=== PATIENT | male | born 1965 | race American Indian/Alaskan Native ===

== ENCOUNTER 2018-07-04 18:18 | Emergency (ER) | payer OTHER ==
--- NOTE | 2018-07-04 18:39 | Emergency Department Report ---
Chief Complaint: Chest Pain Stated Complaint: CHEST PAIN Time Seen by Provider: 07/04/18 18:32 - HPI History of Present Illness: pt c/o chest tightness that began 2-3 days he has SOB, nausea, palpitations denies pleuritic CP, no emesis non smoker pt states he had dental work done early in the week pt states he has had increased stress lately no cardiac hx VSS MSE complete MSE screening note: Focused history and physical exam performed. Due to findings the following was ordered: CP protocol ED Disposition for MSE Condition: Stable
[2018-07-04 19:09] LABS: Hematocrit 44.3 % (35.5-45.6); Hemoglobin 14.8 gm/dl (11.8-15.2); Mean Corpuscular HGB Conc 34 % (32-34); Mean Corpuscular Volume 87 fl (84-94); Platelet Count 162 K/mm3 (140-440); Red Blood Count 5.08 M/mm3 (3.65-5.03); Red Cell Distribution Width 13.7 % (13.2-15.2)
[2018-07-04 19:22] LABS: BUN/Creatinine Ratio 11; Basophils # (Auto) 0.1 K/mm3 (0.0-0.1); Basophils % (Auto) 1.2 % (0.0-1.8); Blood Urea Nitrogen 13 mg/dL (9-20); Calcium 9.1 mg/dL (8.4-10.2); Eosinophils # (Auto) 0.1 K/mm3 (0.0-0.4); Eosinophils % (Auto) 1.6 % (0.0-4.3); Hemolysis Index 12; Lymphocytes # (Auto) 1.8 K/mm3 (1.2-5.4); Lymphocytes % (Auto) 31.4 % (13.4-35.0); Monocytes # (Auto) 0.5 K/mm3 (0.0-0.8); Monocytes % (Auto) 8.9 % (0.0-7.3)
--- NOTE | 2018-07-04 19:28 | XRay Report ---
XR CHEST ROUTINE 2V CLINICAL INDICATION: Male, 52 years of age. Chest Pain COMPARISON: None. Findings: Frontal and lateral views of the chest were obtained. Cardiac silhouette is within normal limits. No focal consolidation or effusion. No pneumothorax. Visualized bony structures are grossly intact. IMPRESSION: No acute findings. This document is electronically signed by Edis Campoverde DO., July 04 2018 07:26:00 PM ET
--- NOTE | 2018-07-04 20:35 | Emergency Department Report ---
ED Chest Pain HPI - General Chief Complaint: Chest Pain Stated Complaint: CHEST PAIN Time Seen by Provider: 07/04/18 18:32 Source: patient Mode of arrival: Ambulatory Limitations: No Limitations - History of Present Illness Initial Comments: 52-year-old male presents to ED with left chest pain 3 days. Patient states pain feels like tightness. Pain is nonradiating. Patient reports associated shortness of breath. Denies nausea, vomiting, diaphoresis. Reports mild cough. Denies leg pain or swelling. MD Complaint: chest pain -: days(s) (3) Onset: during rest Pain Location: left chest Pain Radiation: none Severity: moderate Severity scale (0 -10): 6 Quality: tightness Consistency: intermittent Improves With: nothing Worsens With: nothing re: dyspnea. denies: nausea, vomting, diaphoresis Other Symptoms: cough. denies: fever, leg swelling - Related Data Allergies Allergy/AdvReac Type Severity Reaction Status Date / Time No Known Allergies Allergy Unverified 07/04/18 18:26 Heart Score - HEART Score History: Slightly suspicious EKG: Normal Age: 45-65 Risk factors: No known risk factors Troponin: < normal limit HEART Score: 1 - Critical Actions Critical Actions: 0-3 pts:0.9-1.7%risk of adverse cardiac event.Candidate for discharge ED Review of Systems ROS: Stated complaint: CHEST PAIN Other details as noted in HPI Comment: All other systems reviewed and negative Constitutional: denies: chills, fever Respiratory: cough, shortness of breath Cardiovascular: chest pain Gastrointestinal: denies: nausea, vomiting Musculoskeletal: other (denies leg pain or swelling) ED Past Medical Hx - Past Medical History Previous Medical History?: Yes Hx GERD: Yes Additional medical history: dental work, Cervical neck pain, Sinusitis, " Irregular breathing" Anxiety with chest pain - Surgical History Past Surgical History?: Yes Additional Surgical History: Right inquinal hernia repair - Social History Smoking Status: Never Smoker Substance Use Type: Non Opiate Pain, Other ED Physical Exam - General Limitations: No Limitations General appearance: alert, in no apparent distress - Head Head exam: Present: atraumatic, normocephalic - Eye Eye exam: Present: normal appearance - ENT ENT exam: Present: mucous membranes moist - Neck Neck exam: Present: normal inspection - Respiratory Respiratory exam: Present: normal lung sounds bilaterally. Absent: respiratory distress - Cardiovascular Cardiovascular Exam: Present: regular rate, normal rhythm - GI/Abdominal GI/Abdominal exam: Present: soft. Absent: distended, tenderness - Extremities Exam Extremities exam: Present: normal inspection. Absent: pedal edema, calf tenderness - Neurological Exam Neurological exam: Present: alert, oriented X3 - Psychiatric Psychiatric exam: Present: normal affect, normal mood - Skin Skin exam: Present: warm, dry, intact, normal color ED Course Vital Signs 07/04/18 07/04/18 07/04/18 18:32 19:59 20:00 Temperature 98.1 F 98.6 F Pulse Rate 75 68 Respiratory 20 16 16 Rate Blood Pressure 123/79 Blood Pressure 123/84 [Left] O2 Sat by Pulse 99 100 Oximetry 07/04/18 22:52 Temperature 98.6 F Pulse Rate 63 Respiratory 18 Rate Blood Pressure Blood Pressure 130/90 [Left] O2 Sat by Pulse 98 Oximetry ED Medical Decision Making - Lab Data Result diagrams: 07/04/18 18:53 07/04/18 18:53 - EKG Data -: EKG Interpreted by Or EKG shows normal: sinus rhythm, axis, intervals, QRS complexes, ST-T waves Rate: normal - EKG Data Interpretation: no acute changes - Radiology Data Radiology results: report reviewed, image reviewed - Medical Decision Making 52-year-old male with 3 day history of left-sided chest pain, nonradiating. Patient states pain is worse whenever his arm is resting on his left side. Patient reports associated shortness of breath. Patient states whenever he lays down for bed, he feels as if he cannot breathe. Lungs are clear, patient no respiratory distress, O2 sats normal. No lower extremity edema or tenderness on exam. Remainder of vital signs are normal. EKG is normal, no ST changes present. Troponin negative 2, d-dimer within normal range. The patient states he has undergone lots of testing in the last couple of months. has an appointment with neurologist tomorrow due to ongoing dizziness that he has been experiencing. He also states he was referred by his GI doctor to get a CT scan of the abdomen due to unexplained weight loss. Today patient reports dyspnea when lying down, however patient lying in stretcher and is in no respiratory distress. Patient is frustrated that he has a host of symptoms, however has not found a cause for his symptoms. Patient states his PCP has suggested that his symptoms may be due to stress and anxiety. Patient's symptoms do not appear to be cardiac in nature. Patient has not reported any exacerbation of pain with exertion. The patient is a nonsmoker, no previous cardiac history. HEART score is 1. Also low likelihood of PE, given the patient is not in any respiratory distress, vital signs are normal, no lower extremity findings on exam. Return precautions given. Will discharge at this time. Patient advised to follow up with his PCP. - Differential Diagnosis chest wall pain, ACS, PE, anxiety Critical care attestation.: If time is entered above; I have spent that time in minutes in the direct care of this critically ill patient, excluding procedure time. ED Disposition Clinical Impression: Chest pain Disposition: DC-01 TO HOME OR SELFCARE Is pt being admited?: No Condition: Stable Instructions: Chest Pain (ED) Referrals: PRIMARY CARE,MD [Primary Care Provider] - 3-5 Days Forms: Accompanied Note, Work/School Release Form(ED) Time of Disposition: 23:05
[2018-07-04 22:54] VITALS: BP 130/90
== END 2018-07-04 23:44 | disposition home or self-care (01) ==
LOC: ED 18:18
DX: R07.89 Other chest pain (principal); K21.9 Gastro-esophageal reflux disease without esophagitis
CPT/HCPCS: 36415; 71046; 80048; 82962; 84484; 85025; 85379; 85610; 85730; 93005; 93010; 99284